=== PATIENT | female | born 1990 | race Caucasian/White ===

== ENCOUNTER 2020-06-26 11:20 | Emergency (ER) | payer OTHER, SELFPAY ==
[2020-06-26 11:41] VITALS: BP 127/79; PULSE 98; RESP 15; TEMP 37.2; O2SAT 99; BMI 19.7
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
== END 2020-06-26 13:18 | disposition home or self-care (01) ==
PROVIDERS: Emergency Provider Family Medicine
DX: F07.81 Postconcussional syndrome (principal)
CPT/HCPCS: 99281